=== PATIENT | male | born 1990 | race Asian ===

== ENCOUNTER 2025-07-02 17:23 | Emergency (ER) | payer SELFPAY ==
[~2025-07-02] VITALS: Ht 182.9 cm; Wt 82.0 kg
[2025-07-02 17:47] VITALS: O2SAT 96
[2025-07-02 18:13] LABS: CLARITY URINE CLEAR (CLEAR); COLOR URINE DARK YELLOW (YELLOW); GLUCOSE URINE NEGATIVE (NEGATIVE); KETONES URINE TRACE (NEGATIVE); LEUKOCYTE ESTERASE URINE NEGATIVE (NEGATIVE); NITRITE URINE NEGATIVE (NEGATIVE); OCCULT BLOOD URINE NEGATIVE (NEGATIVE); PH URINE 5.5 (4.5-8.0); PROTEIN URINE 1+ (NEGATIVE); SPECIFIC GRAVITY URINE 1.032 (1.005-1.030); UROBILINOGEN URINE 1.0 E.U./dL (0.2-1.0)
[2025-07-02 18:31] LABS: BACTERIA URINE TRACE; RBC URINE NONE SEEN /hpf (0-2); SQUAMOUS EPITHELIAL CELL URINE NONE SEEN /lpf (RARE/1+); WBC URINE 0-2 /hpf (0-2)
[2025-07-02] MEDS ORDERED: FAMO20TA8 MT (20:25)
[2025-07-02 20:38] VITALS: BP 124/82; PULSE 64; RESP 16; TEMP 36.7; O2SAT 99
== END 2025-07-02 20:39 | disposition home or self-care (01) ==
LOC: ER 17:23
DX: R10.9 Unspecified abdominal pain (principal)
CPT/HCPCS: 81003; 99283